=== PATIENT | female | born 1930 | race Caucasian/White ===

== ENCOUNTER 2021-04-29 12:32 | Inpatient (IN) | payer MEDICARE ==
[~2021-04-29] VITALS: Ht 157.5 cm; Wt 59.0 kg
[2021-04-29 13:09] LABS: HEMOGLOBIN 13.2 gm/dl (12.3-15.3); RED BLOOD COUNT 4.18 M/UL (4.00-5.10); WHITE BLOOD COUNT 11.7 K/UL (4.5-11.0)
[2021-04-29] MEDS ORDERED: LEVOTHYROXINE88 MCG PO (19:30)
[2021-04-29] MEDS ORDERED: SOTALOL AF80 MG PO (19:30)
[2021-04-29] MEDS ORDERED: VITAMIN D325 MC6 PO (19:32)
[2021-04-29] MEDS ORDERED: VITAMIN B-12100 MCG PO (19:32)
[2021-04-29] MEDS ORDERED: ANORO ELLIPTA1 EACH INH (19:33)
[2021-04-29] MEDS ORDERED: JANTOVEN2.5 MG PO ×2 (19:34→19:35)
[2021-04-30 07:35] LABS: HEMOGLOBIN 11.3 gm/dl (12.3-15.3)
[2021-04-30 07:40] LABS: RED BLOOD COUNT 3.7 M/UL (4.00-5.10); WHITE BLOOD COUNT 8.3 K/UL (4.5-11.0)
[2021-04-30 08:08] LABS: BUN/CREATININE RATIO 30 (0-10)
[2021-04-30] MEDS ORDERED: PRESERVISION A1 EAC2 PO (10:29)
[2021-04-30] MEDS ORDERED: SPIRONOLACTONE25 MG PO (10:30)
[2021-04-30] MEDS ORDERED: FUROSEMIDE40 MG PO (10:30)
[2021-04-30] MEDS ORDERED: NITROGLYCERIN0.4 MG SL (10:31)
[2021-04-30] MEDS ORDERED: CEFDINIR300 MG PO (11:06)
== END 2021-04-30 15:47 | disposition home or self-care (01) | DRG 193 ==
LOC: ER1 12:32 → M/S 15:49 → CDU 15:49 → M/S 18:20
PROVIDERS: Emergency Medicine; Physician Assistant Medical; ADMIT Internal Medicine
PROC: B24BZZZ Ultrasonography of Heart with Aorta (ICD-10-PCS; principal; 2021-04-30)
DX: J18.9 Pneumonia, unspecified organism (principal); J96.21 Acute and chronic respiratory failure with hypoxia; J44.0 Chronic obstructive pulmonary disease with (acute) lower respiratory infection; I48.20 Chronic atrial fibrillation, unspecified; I50.32 Chronic diastolic (congestive) heart failure; Z20.822 Contact with and (suspected) exposure to COVID-19; I25.10 Atherosclerotic heart disease of native coronary artery without angina pectoris; E03.9 Hypothyroidism, unspecified; I11.0 Hypertensive heart disease with heart failure; Z99.81 Dependence on supplemental oxygen; Z95.0 Presence of cardiac pacemaker; Z88.0 Allergy status to penicillin; Z88.1 Allergy status to other antibiotic agents; Z95.5 Presence of coronary angioplasty implant and graft; Z79.01 Long term (current) use of anticoagulants; Z88.8 Allergy status to other drugs, medicaments and biological substances; Z82.49 Family history of ischemic heart disease and other diseases of the circulatory system; Z90.710 Acquired absence of both cervix and uterus; Z79.899 Other long term (current) drug therapy
CPT/HCPCS: ECHO; 36415; 36600; 70450; 71045; 80053; 81001; 82550; 82553; 82803; 83735; 83874; 83880; 84484; 85025; 85027; 87040; 93005; 93306; 94664; 94760; 99285; J0456; J0696; J7030; U0002